=== PATIENT | male | born 1985 | race Caucasian/White ===

== ENCOUNTER 2017-07-05 16:15 | Emergency (ER) | payer OTHER ==
[2017-07-05] MEDS: oxyCODONE/APAP 7.5/325 1 TAB TABLET PO ×2 (17:32)
== END 2017-07-05 19:09 | disposition home or self-care (01) ==
LOC: ER 16:15
DX: S43.005A Unspecified dislocation of left shoulder joint, initial encounter (principal); S09.90XA Unspecified injury of head, initial encounter; W18.09XA Striking against other object with subsequent fall, initial encounter; Y93.89 Activity, other specified; Y99.8 Other external cause status; Y92.89 Other specified places as the place of occurrence of the external cause
CPT/HCPCS: 70450; 72125; 73030; 99284